=== PATIENT | male | born 1990 | race African-American/Black ===

== ENCOUNTER 2025-07-06 19:02 | Emergency (ER) | payer SELFPAY ==
[~2025-07-06] VITALS: Ht 175.3 cm; Wt 76.0 kg
[2025-07-06 19:31] VITALS: TEMP 36.8; O2SAT 100
[2025-07-06] MEDS: MECLIZINE 25MG TABLET PO ONE (20:28)
[2025-07-06 20:54] LABS: CREATININE 1.0 mg/dL (0.6-1.3); UREA NITROGEN BLOOD 11 mg/dL (9-23)
[2025-07-06 20:55] LABS: TROPONIN I HIGH SENSITIVITY 6 ng/L (3.0-53)
[2025-07-06 20:56] LABS: ASPARTATE AMINOTRANSFERASE 33 IU/L (<34); BILIRUBIN DIRECT 0.2 mg/dL (<=3.0); BILIRUBIN TOTAL 0.6 mg/dL (0.1-1.0); PROTEIN TOTAL 7.1 g/dL (6.0-8.3)
[2025-07-06 21:10] LABS: BASOPHILS % 1.0 % (0.0-2.0); EOSINOPHILS % 3.1 % (0.0-5.0); HEMATOCRIT. 43.1 % (42.0-52.0); HEMOGLOBIN. 14.7 g/dL (14.0-18.0); LYMPHOCYTES % 40.1 % (20.0-50.0); MEAN PLATELET VOLUME 9.6 fl (7.4-10.4); MONOCYTES % 4.6 % (2.0-8.0); NEUTROPHILS % 51.2 % (40.0-76.0); PLATELET 223 x1000/uL (130-400); RED BLOOD CELL COUNT 4.99 mill/uL (4.7-6.1); RED CELL DISTRIBUTION WIDTH 13.1 % (11.6-14.6)
[2025-07-06] MEDS ORDERED: MECL-299 MT (21:23)
[2025-07-06 22:05] VITALS: BP 110/67; PULSE 56; RESP 12; O2SAT 100
== END 2025-07-06 22:12 | disposition home or self-care (01) ==
LOC: ER 19:02
DX: R42 Dizziness and giddiness (principal); Z79.899 Other long term (current) drug therapy; R06.02 Shortness of breath
CPT/HCPCS: 99285; 71045; 80076; 80048; 83880; 83735; 85025; 85379; 84484; 36415; 93005; J8597